=== PATIENT | female | born 1970 | race American Indian/Alaskan Native ===

== ENCOUNTER 2019-01-30 04:02 | Emergency (ER) | payer OTHER ==
[2019-01-30] MEDS ORDERED: ONDANSETRON 4 MG/2 ML INJ IV ONE (04:16)
[2019-01-30] MEDS ORDERED: HYDROmorphone 1 MG/1 ML INJ IV ONE ×2 (04:16→04:51)
[2019-01-30] MEDS ORDERED: TETANUS,DIPH,PERTUSS(ACELL) VACCINE 0.5 ML SYRINGE IM ONE (04:17)
[2019-01-30] MEDS ORDERED: ONDANSETRON 4 MG/2 ML INJ ONE (04:19)
[2019-01-30] MEDS ORDERED: HYDROmorphone 1 MG/1 ML INJ ONE (04:19)
[2019-01-30] MEDS ORDERED: ceFAZolin/NS 1 GM/50 ML 1 GM/50 ML BAG IV ONE (04:48)
[2019-01-30] MEDS ORDERED: SODIUM CHLORIDE IRRI 500 ML 500 ML IR ONE (05:02)
--- NOTE | 2019-01-30 06:01 | XRay Report ---
EXAMINATION: Left finger radiograph series, 2 views, 01/30/2019 CLINICAL INFORMATION: Trauma. Amputation of fourth digit. COMPARISON: None. FINDINGS: There has been amputation of the fourth digit at the level of the middle phalanx. There is also an angulated fracture of the third digit through the middle phalanx and a nondisplaced fracture through the proximal third phalanx. Signer Name: Rafia Fletcher MD Signed: 01/30/2019 5:56 AM Workstation Name: [id number]
--- NOTE | 2019-01-30 06:34 | Emergency Department Report ---
ED General Adult HPI - General Chief complaint: Extremity Injury, Upper Stated complaint: FINGER TRAUMA RIGHT HAND Time Seen by Provider: 01/30/19 04:16 Source: patient Mode of arrival: Ambulatory Limitations: No Limitations - History of Present Illness Initial comments: 48-year-old female who caught her hand in a conveyor belt apparatus at work. She injured her third and fourth finger of her right hand only. She denies other injury. She denies chronic medical problems. She denies chronic medications. -: Sudden Location: right (hand) Severity scale (0 -10): 6 Quality: aching Consistency: constant Improves with: none Worsens with: none Associated Symptoms: denies other symptoms Treatments Prior to Arrival: none - Related Data Allergies Allergy/AdvReac Type Severity Reaction Status Date / Time No Known Allergies Allergy Verified 01/30/19 04:22 ED Review of Systems ROS: Stated complaint: FINGER TRAUMA RIGHT HAND Other details as noted in HPI Constitutional: denies: chills, fever Eyes: denies: eye pain, eye discharge, vision change ENT: denies: ear pain, throat pain Respiratory: denies: cough, shortness of breath, wheezing Cardiovascular: denies: chest pain, palpitations Endocrine: no symptoms reported Gastrointestinal: denies: abdominal pain, nausea, diarrhea Genitourinary: denies: urgency, dysuria, discharge Musculoskeletal: as per HPI. denies: back pain, joint swelling, arthralgia Skin: denies: rash, lesions Neurological: denies: headache, weakness, paresthesias Psychiatric: denies: anxiety, depression Hematological/Lymphatic: denies: easy bleeding, easy bruising ED Past Medical Hx - Past Medical History Previous Medical History?: No - Surgical History Past Surgical History?: No - Social History Smoking Status: Current Every Day Smoker Substance Use Type: Alcohol, Marijuana ED Physical Exam - General Limitations: No Limitations General appearance: alert, in no apparent distress - Head Head exam: Present: atraumatic, normocephalic - Eye Eye exam: Present: normal appearance - ENT ENT exam: Present: mucous membranes moist - Neck Neck exam: Present: normal inspection - Respiratory Respiratory exam: Present: normal lung sounds bilaterally. Absent: respiratory distress - Cardiovascular Cardiovascular Exam: Present: regular rate, normal rhythm. Absent: systolic murmur, diastolic murmur, rubs, gallop - GI/Abdominal GI/Abdominal exam: Present: soft, normal bowel sounds. Absent: distended, tenderness, guarding, rebound - Extremities Exam Extremities exam: Present: other (there is a distal amputation in a diagonal manner the level of the middle phalanx of the fourth finger of the right hand. There is essentially a loving injury exposing the extensor mechanism of the middle finger of the right hand with lacerations both distal and proximal. There is inadequate extension. The distal finger appears to be viable (third)) - Back Exam Back exam: Present: normal inspection - Neurological Exam Neurological exam: Present: alert, oriented X3 - Psychiatric Psychiatric exam: Present: normal affect, normal mood - Skin Skin exam: Present: warm, dry, intact, normal color. Absent: rash ED Course Vital Signs 01/30/19 01/30/19 01/30/19 04:14 04:22 04:23 Temperature 98.1 F 98.1 F Pulse Rate 99 H 97 H Respiratory 18 18 Rate Blood Pressure 117/76 Blood Pressure 138/73 138/73 [Left] O2 Sat by Pulse 97 99 98 Oximetry 01/30/19 01/30/19 01/30/19 04:30 04:46 05:00 Temperature Pulse Rate Respiratory Rate Blood Pressure 92/55 98/54 95/59 Blood Pressure [Left] O2 Sat by Pulse 97 98 Oximetry - Reevaluation(s) Reevaluation #1: Discussed with Dr. Grant, hand surgeon at [place]. He was very kind to accept this patient for care at the trauma center. Patient was given a tetanus toxoid, analgesia, prophylactic intravenous antibiotics. 01/30/19 06:46 Critical care attestation.: If time is entered above; I have spent that time in minutes in the direct care of this critically ill patient, excluding procedure time. ED Disposition Clinical Impression: Amputation, finger, traumatic Qualifiers: Encounter type: initial encounter Qualified Code(s): S68.119A - Complete traumatic metacarpophalangeal amputation of unspecified finger, initial encounter Degloving injury of finger Qualifiers: Encounter type: initial encounter Qualified Code(s): S61.209A - Unspecified open wound of unspecified finger without damage to nail, initial encounter Disposition: [id number]/TX-[id number] ANOTHER TYPE HLTHCARE Is pt being admited?: No Does the pt Need Aspirin: No Condition: Stable Referrals: PRIMARY CARE, [Primary Care Provider] - 3-5 Days Time of Disposition: 06:48
[2019-01-30 06:52] VITALS: BP 107/60
== END 2019-01-30 06:56 | disposition other institution (70) ==
LOC: ED 04:02
DX: S68.112A Complete traumatic metacarpophalangeal amputation of right middle finger, initial encounter (principal); S68.114A Complete traumatic metacarpophalangeal amputation of right ring finger, initial encounter; F17.200 Nicotine dependence, unspecified, uncomplicated; F12.10 Cannabis abuse, uncomplicated; W22.8XXA Striking against or struck by other objects, initial encounter; Y93.89 Activity, other specified; Y92.89 Other specified places as the place of occurrence of the external cause; Y99.8 Other external cause status
CPT/HCPCS: 73140; 90471; 90715; 96374; 96375; 96376; 99285; J0690; J1170; J2405